=== PATIENT | male | born 1970 | race Caucasian/White ===

== ENCOUNTER 2017-03-01 18:51 | Emergency (ER) | payer MEDICAID, OTHER ==
[~2017-03-01] VITALS: Ht 170.2 cm; Wt 79.5 kg
[2017-03-01 18:55] VITALS: Ht 170.2 cm; Wt 79.5 kg
[2017-03-01] MEDS ORDERED: SULF1TAB31 PO (19:56)
[2017-03-01] MEDS ORDERED: CEPH-443 PO (19:56)
[2017-03-01] MEDS ORDERED: DIPHTH/TET/ACEL PERTUSS (ADULT) 0.5 ML VIAL IM* ONE (20:00)
--- NOTE | 2017-03-01 20:01 | ERD ---
ER Documentation Chief Complaint Date/Time DATE: 03/01/17 TIME: 20:00 Chief Complaint c/o left leg injury s/p mechanical fall. (+) redness and lac. No bleeding HPI This a 47-year-old male who was at work yesterday morning and cut his left armstrong on the blade from the machine. Patient did this at 11 AM yesterday and this is now presenting here at nearly 8 PM tonight. Is a small laceration on the anterior armstrong there is no erythema no numbness weakness. Laceration is superficial. ROS All systems reviewed and are negative except as per history of present illness. Medications Home Meds Active Scripts Sulfamethoxazole/Trimethoprim* (Bactrim Ds* Tablet) 1 Each Tablet, 1 TAB PO BID for 10 Days, #20 TAB Prov:JOSEF PETERSONSTSHONDAS A. DO 03/01/17 Cephalexin* (Keflex*) 500 Mg Capsule, 500 MG PO QID for 10 Days, CAP Prov:LEKKOS,APOSTOLOS A. DO 03/01/17 Allergies Allergies: Coded Allergies: No Known Allergy (Unverified , 03/01/17) PMhx/Soc Medical and Surgical Hx: pt denies Medical Hx, pt denies Surgical Hx Hx Alcohol Use: No Hx Substance Use: No Hx Tobacco Use: No Smoking Status: Never smoker FmHx Family History: No coronary disease Physical Exam Vitals Vital Signs Date Time Temp Pulse Resp B/P Pulse Ox O2 Delivery O2 Flow Rate FiO2 03/01/17 18:55 98.5 82 18 139/89 83 Physical Exam Const: Well-developed, well-nourished Head: Atraumatic, normocephalic Eyes: Normal Conjunctiva, PERRLA, EOMI, normal sclera, no nystagmus ENT: Normal External Ears, Nose and Mouth, moist mucus membranes. Neck: Full range of motion. No meningismus, no lymphadenopathy. Resp: Clear to auscultation bilaterally, no wheezing, rhonchi, rales Cardio: Regular rate and rhythm, no murmurs, S1 S2 present Abd: Soft, non tender x 4, non distended. Normal bowel sounds, no guarding or rebound, no pulsitile abdominal masses or bruits Skin: No petechiae or rashes, no ecchymosis , no maculopapular rash Back: No midline or flank tenderness Ext: No cyanosis, or edema, FROM x 4, normal inspection, neurovascularly intact x 4, on the left armstrong there is a 2-1/2 cm long last and that is superficial with slight gaping there is no bleeding no erythema no signs of infection. Neur: Awake and alert, STR 5/5 x 4, sensation intact x 4, no focal findings, cerebellum intact Psych: Normal Mood and Affect Procedures/MDM Wound is too old to be closed. We had the wound cleaned and Steri-Strips placed. Explained to the family that he cannot close it and will provide him with Keflex and Bactrim Departure Diagnosis: Primary Impression: Laceration of left leg Encounter type: initial encounter Qualified Code: S81.812A - Laceration of left leg, initial encounter Condition: Stable Patient Instructions: Laceration (Sure+Close) LIANNA PETERSON DO Mar 01, 2017 20:01
[2017-03-01 20:28] VITALS: BP 142/88; PULSE 75; RESP 17; TEMP 99.2
== END 2017-03-01 20:30 | disposition home or self-care (01) ==
LOC: FTE 18:51
DX: S81.812A Laceration without foreign body, left lower leg, initial encounter (principal); W31.9XXA Contact with unspecified machinery, initial encounter; Y92.9 Unspecified place or not applicable; Z23 Encounter for immunization
CPT/HCPCS: 90471; 90715; Z7502